=== PATIENT | male | born 1960 | race Caucasian/White ===

== ENCOUNTER 2024-08-13 08:46 | Outpatient (CLI) | payer BC | END 2024-08-13 08:47 | disposition home or self-care (01) | LOC: CSHCT 08:46 | PROVIDERS: ATTEND Family Medicine | DX: R05.1 Acute cough (principal); R91.1 Solitary pulmonary nodule; J40 Bronchitis, not specified as acute or chronic; R91.8 Other nonspecific abnormal finding of lung field | CPT/HCPCS: 71270; 82565 ==